=== PATIENT | female | born 1960 | race Caucasian/White ===

== ENCOUNTER 2021-05-07 01:05 | Emergency (ER) | payer MEDICAID ==
[~2021-05-07] VITALS: Ht 165.1 cm; Wt 53.5 kg
[~2021-05-07 01:05] MED LIST: ZOLM5SPR6 PO; [UNRECOGNIZED DRUG - REMARK]
[2021-05-07] MEDS ORDERED: METOCLOPRAMIDE HCL 10 MG/2 ML VIAL IV ONE (01:30)
[2021-05-07] MEDS ORDERED: IV NS 0.9% 1,000 ML BAG IV ONE (01:30)
[2021-05-07] MEDS ORDERED: SUMATRIPTAN SUCCINATE 6 MG/0.5 ML VIAL SQ ONE ×2 (01:30→01:38)
[2021-05-07] MEDS ORDERED: METOCLOPRAMIDE HCL 10 MG/2 ML VIAL ONE (01:39)
--- NOTE | 2021-05-07 01:40 | NUR ---
SADE MONROE C/O EXTREME MIGRAINE SINCE LAST NIGHT 10PM NOTED WITH +NAUSEA/ VOMITED AT HOME. PATIENT IS A/O X 4, RR EVEN AND UNLABORED, NO SOB NOTED. PATIENT CONNECTED TO MONITOR.
--- NOTE | 2021-05-07 03:01 | NUR ---
Patient discharged to home in stable condition. Written and verbal after care instructions given. Patient verbalizes understanding of instruction.
[2021-05-07 03:02] VITALS: BP 125/76
== END 2021-05-07 03:02 | disposition home or self-care (01) ==
LOC: ER 01:05
DX: G43.909 Migraine, unspecified, not intractable, without status migrainosus (principal); R11.2 Nausea with vomiting, unspecified; I10 Essential (primary) hypertension; E78.5 Hyperlipidemia, unspecified
CPT/HCPCS: 96361; 96372; 96374; 99284; J2765; J3030; J7030

== ENCOUNTER 2024-01-09 21:32 | Emergency (ER) | payer MEDICAID ==
[~2024-01-09] VITALS: Ht 165.1 cm; Wt 49.9 kg
[2024-01-09 23:00] VITALS: TEMP 97.7
[2024-01-09] MEDS ORDERED: SUMATRIPTAN SUCCINATE 6 MG/0.5 ML VIAL SQ ONE (23:23)
[2024-01-09] MEDS ORDERED: METOCLOPRAMIDE HCL 10 MG/2 ML VIAL ONE (23:23)
[2024-01-09] MEDS: IV NS 0.9% 1,000 ML BAG IV ONE (23:30)
[2024-01-09] MEDS: METOCLOPRAMIDE HCL 10 MG/2 ML VIAL IV ONE (23:30)
[2024-01-09] MEDS: SUMATRIPTAN SUCCINATE 6 MG/0.5 ML VIAL SQ ONE (23:30)
[2024-01-10] MEDS ORDERED: KETOROLAC TROMETHAMINE INJ 30 MG/ML VIAL ONE (00:16)
[2024-01-10] MEDS: KETOROLAC TROMETHAMINE INJ 30 MG/ML VIAL IV ONE (00:18)
[2024-01-10 01:03] VITALS: BP 148/89; O2SAT 100
== END 2024-01-10 01:04 | disposition home or self-care (01) ==
LOC: ER 21:41
DX: G43.909 Migraine, unspecified, not intractable, without status migrainosus (principal); I10 Essential (primary) hypertension; E78.5 Hyperlipidemia, unspecified; Z87.442 Personal history of urinary calculi
CPT/HCPCS: 99285; 96374; 70450; 96361; 96372; 96375; J3030; J2765; J7030; J1885